=== PATIENT | male | born 1950 | race Hispanic/Latino ===

== ENCOUNTER 2023-08-26 08:00 | Emergency (ER) | payer OTHER ==
[~2023-08-26] VITALS: Ht 167.6 cm; Wt 67.1 kg
[2023-08-26 08:27] LABS: MEAN CORPUSCULAR HEMOGLOBIN 29.7 pg (27.0-33.0); MEAN CORPUSCULAR HGB CONC 33.8 g/dL (32.0-36.0); MEAN CORPUSCULAR VOLUME 88.1 fL (79-99); RED BLOOD CELL COUNT(AUTO) 4.54 MIL/uL (4.50-6.20); RED CELL DISTRIBUTION WIDTH 12.3 % (11.0-15.5); WHITE BLOOD COUNT (AUTO) 7.7 K/uL (4.8-10.8)
[2023-08-26] MEDS ORDERED: IPRATROPIUM/ALBUTEROL SULFATE 3 ML SOLUTION IH ONE (08:30)
[2023-08-26 08:39] VITALS: PULSE 76; RESP 18
[2023-08-26 08:48] LABS: CREATININE 0.8 mg/dL (0.5-1.5); POTASSIUM 3.6 mmol/L (3.5-5.1)
[2023-08-26 08:52] LABS: SARS-CoV-2, RNA, NAAT NEGATIVE SARS CoV-2 (NEGATIVE)
[2023-08-26 08:55] LABS: INFLUENZA TYPE A Negative For Type A (NEGATIVE); INFLUENZA TYPE B Negative For Type B (NEGATIVE)
[2023-08-26] MEDS ORDERED: SOLU-MEDROL 125MG VIAL IVP ONE (09:00)
[2023-08-26] MEDS ORDERED: BUDE10.2 IH (11:28)
[2023-08-26] MEDS ORDERED: PRED20TA3 PO (11:28)
[2023-08-26] MEDS ORDERED: ALBUHFA IH (11:28)
[2023-08-26 11:31] VITALS: BP 119/80; PULSE 70; RESP 18; O2SAT 100
== END 2023-08-26 11:31 | disposition home or self-care (01) ==
LOC: EDH 08:00
DX: J45.901 Unspecified asthma with (acute) exacerbation (principal); Z79.51 Long term (current) use of inhaled steroids; Z79.52 Long term (current) use of systemic steroids; Z20.822 Contact with and (suspected) exposure to COVID-19
CPT/HCPCS: 99285; 96374; 71045; 87635; 84484; 80048; 83880; 85027; 87804 ×2; 36415; 93005; 94640; J2930

== ENCOUNTER 2024-03-07 09:53 | Emergency (ER) | payer OTHER ==
[~2024-03-07] VITALS: Ht 167.6 cm; Wt 67.1 kg
[~2024-03-07 09:53] MED LIST: ALBUHFA IH; BUDE10.2 IH; PRED20TA3 PO
[2024-03-07] MEDS: SOLU-MEDROL 125MG VIAL IVP ONE (10:04)
[2024-03-07 10:16] LABS: BASOPHILS # (AUTO) 0.03 K/uL (0.00-0.20); BASOPHILS % (AUTO) 0.3 % (0.0-5.0); EOSINOPHILS # (AUTO) 0.01 K/uL (0.00-0.70); EOSINOPHILS % (AUTO) 0.1 % (0.0-8.0); HEMATOCRIT 37.8 % (42-54); IMMATURE GRANULOCYTE ABSOLUTE 0.04 K/uL (0-1); LYMPHOCYTES # (AUTO) 1.4 K/uL (1.0-4.8); MEAN CORPUSCULAR HEMOGLOBIN 30.6 pg (27.0-33.0); MEAN CORPUSCULAR HGB CONC 34.1 g/dL (32.0-36.0); MEAN CORPUSCULAR VOLUME 89.8 fL (79-99); MONOCYTES # (AUTO) 0.5 K/uL (0.1-1.0); MONOCYTES % (AUTO) 6.1 % (3.0-13.0); NEUTROPHILS # (AUTO) 6.7 K/uL (1.8-7.7); PLATELET COUNT (AUTO) 171 K/uL (130-400); RED BLOOD CELL COUNT(AUTO) 4.21 MIL/uL (4.50-6.20); RED CELL DISTRIBUTION WIDTH 12.5 % (11.0-15.5); WHITE BLOOD COUNT (AUTO) 8.7 K/uL (4.8-10.8)
[2024-03-07] MEDS: IPRATROPIUM/ALBUTEROL SULFATE 3 ML SOLUTION IH ONE (10:21)
[2024-03-07 10:23] VITALS: PULSE 84; RESP 21
[2024-03-07 10:27] LABS: CREATININE 0.9 mg/dL (0.5-1.3); POTASSIUM 3.4 mmol/L (3.5-5.1)
[2024-03-07 10:31] LABS: ALBUMIN 3.2 g/dL (3.5-5.0); BILIRUBIN,TOTAL 0.7 mg/dL (0.2-1.0); TOTAL PROTEIN, SERUM 6.3 g/dL (6.0-8.3)
[2024-03-07 10:54] LABS: B-TYPE NATRIURETIC PEPTIDE 9 pg/mL (0-100)
[2024-03-07 11:49] VITALS: BP 112/62; PULSE 86; RESP 14; O2SAT 98
[2024-03-07] MEDS ORDERED: PRED20TA3 PO (12:23)
== END 2024-03-07 12:35 | disposition home or self-care (01) ==
LOC: EDH 09:53
DX: J45.901 Unspecified asthma with (acute) exacerbation (principal); Z79.51 Long term (current) use of inhaled steroids; Z79.52 Long term (current) use of systemic steroids
CPT/HCPCS: 99285; 96374; 71045; 82550; 83735; 84484; 80053; 83880; 85025; 36415; 93005; 94640; J2919

== ENCOUNTER 2024-04-06 00:53 | Emergency (ER) | payer OTHER ==
[~2024-04-06] VITALS: Ht 162.6 cm; Wt 67.1 kg
[2024-04-06] MEDS: ALBUTEROL 0.083% 2.5 MG/3 ML INH IH ONE (01:05)
[2024-04-06] MEDS: Solu-medROL 125MG VIAL IVP ONE (01:05)
[2024-04-06] MEDS: MAGNESIUM 2GM PREMIX 50ML 50 ML IV SCH (01:06)
[2024-04-06] MEDS: IpraTROPium/alBUTERol SULFATE 3 ML SOLUTION IH ONE ×2 (01:06→01:40)
[2024-04-06 01:07] LABS: BASOPHILS # (AUTO) 0.12 K/uL (0.00-0.20); BASOPHILS % (AUTO) 1.4 % (0.0-5.0); EOSINOPHILS # (AUTO) 0.53 K/uL (0.00-0.70); EOSINOPHILS % (AUTO) 6.3 % (0.0-8.0); HEMATOCRIT 39.5 % (42-54); IMMATURE GRANULOCYTE ABSOLUTE 0.04 K/uL (0-1); LYMPHOCYTES # (AUTO) 2.6 K/uL (1.0-4.8); LYMPHOCYTES % (AUTO) 30.5 % (21.0-51.0); MEAN CORPUSCULAR HEMOGLOBIN 30.2 pg (27.0-33.0); MEAN CORPUSCULAR HGB CONC 33.7 g/dL (32.0-36.0); MEAN CORPUSCULAR VOLUME 89.8 fL (79-99); MONOCYTES # (AUTO) 0.7 K/uL (0.1-1.0); MONOCYTES % (AUTO) 8.5 % (3.0-13.0); NEUTROPHILS # (AUTO) 4.4 K/uL (1.8-7.7); NEUTROPHILS % (AUTO) 52.8 % (40.0-77.0); PLATELET COUNT (AUTO) 237 K/uL (130-400); RED CELL DISTRIBUTION WIDTH 12.2 % (11.0-15.5); WHITE BLOOD COUNT (AUTO) 8.4 K/uL (4.8-10.8)
[2024-04-06] MEDS: BUDESONIDE 0.5 MG/2 ML INH IH ONE (01:08)
[2024-04-06] MEDS: BUDESONIDE 0.5 MG/2 ML INH IH SCH (01:08)
[2024-04-06 01:09] VITALS: PULSE 76; RESP 22
[2024-04-06 01:26] LABS: CREATININE 1.1 mg/dL (0.5-1.3); POTASSIUM 3.9 mmol/L (3.5-5.1)
[2024-04-06 01:30] LABS: B-TYPE NATRIURETIC PEPTIDE 18 pg/mL (0-100)
[2024-04-06 01:40] VITALS: PULSE 74; RESP 19
[2024-04-06 02:05] LABS: SARS-CoV-2, RNA, NAAT NEGATIVE SARS CoV-2 (NEGATIVE)
[2024-04-06 02:08] LABS: INFLUENZA TYPE A Negative For Type A (NEGATIVE); INFLUENZA TYPE B Negative For Type B (NEGATIVE)
[2024-04-06 02:51] VITALS: BP 134/68; PULSE 69; RESP 17; TEMP 97.2; O2SAT 97
[2024-04-06] MEDS ORDERED: METH4TAB3 PO (03:00)
[2024-04-06] MEDS ORDERED: AZIT250T9 PO (03:01)
== END 2024-04-06 03:17 | disposition home or self-care (01) ==
LOC: EDH 00:53
DX: J45.901 Unspecified asthma with (acute) exacerbation (principal); Z79.899 Other long term (current) drug therapy; Z20.822 Contact with and (suspected) exposure to COVID-19
CPT/HCPCS: 99284; 96365; 71045; 87635; 96366; 96375; 84484; 80048; 83880; 85025; 87804 ×2; 36415; 84145; 94640 ×2; J3475; J2919